=== PATIENT | female | born 1975 | race Hispanic/Latino ===

== ENCOUNTER 2018-04-09 19:26 | Observation (INO) | payer SELFPAY ==
[~2018-04-09] VITALS: Ht 157.5 cm; Wt 68.5 kg
[2018-04-09 20:26] LABS: URINE BILIRUBIN - DIPSTICK NEGATIVE (NEGATIVE); URINE BLOOD DIPSTICK NEGATIVE (NEGATIVE); URINE COLOR YELLOW; URINE GLUCOSE - DIPSTICK >=1000 mg/dL (NEGATIVE); URINE KETONE TRACE mg/dL (NEGATIVE); URINE LEUK ESTERASE NEGATIVE (NEGATIVE); URINE NITRITE - DIPSTICK NEGATIVE (Negative); URINE PH 5.5 (4.5-8.0); URINE PROTEIN - DIPSTICK NEGATIVE (NEG-TRACE); URINE SPECIFIC GRAVITY 1.015; URINE UROBILINOGEN - DIPSTICK >=8.0 E.U./dL (0.2)
[2018-04-09 20:51] LABS: INFLUENZA A NONE DETECTED (NONE DETECT); INFLUENZA B NONE DETECTED (NONE DETECT)
[2018-04-09 21:01] LABS: URINE CLARITY CLEAR
[2018-04-09 22:04] LABS: IMMATURE GRANULOCYTES 0.4 % (0.0-5.0); MEAN CORPUSCULAR HGB 21.6 pG CALC (26.0-32.0); MEAN CORPUSCULAR HGB CONC 30.1 g/L CALC (32.0-36.0); NEUT# 5.16 thou/uL (2.00-7.15); RED BLOOD COUNT 3.71 mill/uL (4.20-5.60); RED CELL DISTRI WIDTH 16.5 % (11.5-15.5)
[2018-04-09 22:07] LABS: HEMATOCRIT 26.6 % (37.0-47.0); MEAN CELL VOLUME 71.7 fL CALC (80.0-100.0)
[2018-04-09 22:27] LABS: ALBUMIN 3.8 g/dL (3.2-5.0); BILIRUBIN, TOTAL 0.4 mg/dL (0.0-1.4); BUN 11 mg/dL (7-17); BUN/CREATININE RATIO 32 (12-20 (CALC)); CHLORIDE 98 mmol/l (95-108); CREATININE 0.3 mg/dL (0.5-1.0); GFR > 60 ML/MIN (>=60 (CALC)); GFR FOR AFR.AMER. > 60 ML/MIN (>=60 (CALC)); SGOT/AST 23 u/l (14-36); SGPT/ALT 34 u/l (9-52); SODIUM 136 mmol/l (137-146); TOTAL PROTEIN 6.9 g/dL (6.3-8.2)
[2018-04-09 22:31] LABS: ALKALINE PHOSPHATASE 151 u/l (38-126); ANION GAP 15 (6-22 (CALC)); CARBON DIOXIDE 28 mmol/l (22-30); POTASSIUM 4.9 mmol/l (3.5-5.1)
[2018-04-09 23:35] VITALS: BP 105/58
[2018-04-10 04:39] VITALS: BP 117/73
[2018-04-10 07:51] VITALS: BP 117/77
[2018-04-10 11:28] LABS: ACT PARTIAL THROMBO TIME 24.8 SECONDS (20.0-32.5); PROTHROMBIN TIME 10.6 SECONDS (9.0-12.5)
[2018-04-10 11:49] LABS: CHOLESTEROL HDL RATIO 4.9 (<4.4 (CALC)); MAGNESIUM 1.8 mg/dL (1.6-2.3)
[2018-04-10] MEDS ORDERED: TYLENOL325 MG PO (14:34)
[2018-04-10 16:00] VITALS: BP 131/68
[2018-04-10 19:29] VITALS: BP 103/62
[2018-04-11 04:30] VITALS: BP 116/77
[2018-04-11 07:22] LABS: HEMATOCRIT 26.2 % (37.0-47.0); HEMOGLOBIN 7.8 g/dl (12.0-16.0); MEAN CELL VOLUME 72.2 fL CALC (80.0-100.0); MEAN CORPUSCULAR HGB 21.5 pG CALC (26.0-32.0); MEAN CORPUSCULAR HGB CONC 29.8 g/L CALC (32.0-36.0); RED BLOOD COUNT 3.63 mill/uL (4.20-5.60); RED CELL DISTRI WIDTH 16.5 % (11.5-15.5)
[2018-04-11 07:59] LABS: ANION GAP 17 (6-22 (CALC)); BUN 11 mg/dL (7-17); BUN/CREATININE RATIO 37 (12-20 (CALC)); CARBON DIOXIDE 22 mmol/l (22-30); CHLORIDE 104 mmol/l (95-108); CREATININE 0.3 mg/dL (0.5-1.0); GFR > 60 ML/MIN (>=60 (CALC)); GFR FOR AFR.AMER. > 60 ML/MIN (>=60 (CALC)); POTASSIUM 4.6 mmol/l (3.5-5.1); SODIUM 138 mmol/l (137-146)
[2018-04-11 08:16] VITALS: BP 108/67
[2018-04-11 11:16] VITALS: BP 107/55
[2018-04-11 11:17] VITALS: BP 120/66
[2018-04-11 11:18] VITALS: BP 114/66
[2018-04-11] MEDS ORDERED: FERR SULFATE325 MG PO (12:21)
[2018-04-11] MEDS ORDERED: GLUCOPHAGE500 MG PO (12:21)
[2018-04-11] MEDS ORDERED: LEVAQUIN750 MG PO (12:21)
[2018-04-11] MEDS ORDERED: GLIPIZIDE5 MG PO (12:21)
== END 2018-04-11 16:55 | disposition home or self-care (01) | DRG 195 ==
LOC: ED 19:26 → ED-I 21:55 → ED 23:01 → MS2 23:02
PROVIDERS: Emergency Medicine; Internal Medicine; Nurse Practitioner Family; ADMIT General Practice; ATTEND General Practice
DX: J18.9 Pneumonia, unspecified organism (principal); J02.0 Streptococcal pharyngitis; E11.9 Type 2 diabetes mellitus without complications; D50.9 Iron deficiency anemia, unspecified; N92.0 Excessive and frequent menstruation with regular cycle
CPT/HCPCS: G0378; J1756